=== PATIENT | male | born 1985 | race Caucasian/White ===

== ENCOUNTER 2018-03-23 14:32 | Emergency (ER) | payer BC ==
[2018-03-23] MEDS ORDERED: Dexamethasone 4 MG TAB ONE (15:09)
[2018-03-23] MEDS ORDERED: Cephalexin 500 MG CAP ONE (15:09)
== END 2018-03-23 15:20 | disposition home or self-care (01) ==
LOC: MADERS 14:32
DX: T78.40XA Allergy, unspecified, initial encounter (principal); L73.9 Follicular disorder, unspecified
CPT/HCPCS: 99282; J8540